=== PATIENT | female | born 2000 | race Caucasian/White ===

== ENCOUNTER 2019-10-04 02:01 | Inpatient (IN) | payer BC ==
[~2019-10-04] VITALS: Ht 172.7 cm; Wt 43.3 kg
[2019-10-04 02:06] VITALS: BP 102/80
[2019-10-04 02:59] LABS: BILIRUBIN NEGATIVE (NEGATIVE); BLOOD 2+ (NEGATIVE); CLARITY SL CLOUDY (CLEAR); COLOR YELLOW (YELLOW); GLUCOSE NEGATIVE (NEGATIVE); KETONE 2+ (NEGATIVE); LEUKO ESTERASE NEGATIVE (NEGATIVE); NITRITE NEGATIVE (NEGATIVE); PH >= 9.0 (5.0-9.0); UROBILINOGEN 0.2 E.U./dl (0.2-1.0)
[2019-10-04 03:02] LABS: BASO % 0.1 % (0.0-1.0); EOS % 0.2 % (1.0-4.0); HEMATOCRIT 38.1 % (37.0-47.0); HEMOGLOBIN 12.7 g/dl (12.0-16.0); LYMPH # 2.5 10*3/uL (1.3-4.4); LYMPH % 27.6 % (27.0-41.0); MEAN CELL VOLUME 84.7 fl (81.0-99.0); MEAN CORPUSCULAR HGB 28.2 pg (27.0-31.0); MEAN CORPUSCULAR HGB CONC 33.3 g/dl (33.0-37.0); MEAN PLATELET VOLUME 9.2 fl (9.6-12.3); MONO # 0.5 10*3/uL (0.1-1.0); MONO % 5.6 % (3.0-9.0); NEUT # 6.1 10*3/uL (2.3-7.9); NEUT % 66.3 % (47.0-73.0); PLATELET COUNT AUTOMATED 362 10*3/uL (130-400); RED CELL DISTRI WIDTH 13.5 % (0-14.5); WHITE BLOOD COUNT 9.1 10*3/uL (4.8-10.8)
[2019-10-04 03:09] LABS: BACTERIA TRACE; MUCOUS TRACE
[2019-10-04 03:16] LABS: ALBUMIN 4.3 gm/dl (3.1-4.5); ALKALINE PHOSPHATASE 78 U/L (45-117); BUN 10 mg/dl (7-24); CHLORIDE 107 mmol/L (98-107); CREATININE 0.73 mg/dL (0.55-1.02); LIPASE 147 U/L (73-393); POTASSIUM 3.1 mmol/L (3.5-5.1); SGOT/AST 11 IU/L (3-35); SGPT/ALT 18 U/L (12-78); SODIUM 141 mmol/L (136-145); TOTAL PROTEIN 8.1 gm/dL (6.4-8.2)
--- NOTE | 2019-10-04 03:20 | NUR ---
DOC NOTIFIED OF CRITICAL LA
[2019-10-04 04:55] VITALS: BP 109/66
[2019-10-04] MEDS ORDERED: K-TAB20 MEQ PO (06:27)
[2019-10-04] MEDS ORDERED: ZOFRAN4 MG PO (06:27)
--- NOTE | 2019-10-04 06:40 | NUR ---
PT HAD LARGE EPISODE OF EMESIS.PER MD PT TO BE ADMITTED.NEW IV ESTABLISHED IN PT RT ARM.
[2019-10-04 06:52] LABS: BASO % 0.1 % (0.0-1.0); EOS % 0.1 % (1.0-4.0); HEMATOCRIT 35.9 % (37.0-47.0); HEMOGLOBIN 11.9 g/dl (12.0-16.0); LYMPH # 1.5 10*3/uL (1.3-4.4); MEAN CELL VOLUME 86.7 fl (81.0-99.0); MEAN CORPUSCULAR HGB 28.7 pg (27.0-31.0); MEAN CORPUSCULAR HGB CONC 33.1 g/dl (33.0-37.0); MEAN PLATELET VOLUME 9.8 fl (9.6-12.3); MONO # 0.3 10*3/uL (0.1-1.0); MONO % 4.2 % (3.0-9.0); NEUT % 73.5 % (47.0-73.0); PLATELET COUNT AUTOMATED 382 10*3/uL (130-400); RED BLOOD COUNT 4.14 10*6/uL (4.10-5.10); RED CELL DISTRI WIDTH 13.5 % (0-14.5); WHITE BLOOD COUNT 6.9 10*3/uL (4.8-10.8)
--- NOTE | 2019-10-04 07:44 | NUR ---
Time: 743 A 19 year old F admitted to under services of KALE VILLEGAS DO. Pt. arrived via stretcher from ER. Chief complaint: NAUSEA/VOMITING. HE HERNANDEZ
[2019-10-04 07:48] LABS: BUN 9 mg/dl (7-24); CHLORIDE 114 mmol/L (98-107); CREATININE 0.58 mg/dL (0.55-1.02); POTASSIUM 3.6 mmol/L (3.5-5.1); SODIUM 144 mmol/L (136-145)
[2019-10-04 08:00] VITALS: BP 106/59
--- NOTE | 2019-10-04 08:38 | NUR ---
RESIDENT IN TO SEE PATIENT. PT DECLINED LOVENOX, UNDERSTANDS MEDIATIONS AND RISKS.
[2019-10-04 12:00] VITALS: BP 119/78
--- NOTE | 2019-10-04 13:55 | NUR ---
Discharge instructions reviewed with patient/family. Patient receptive and verbalizes understanding. Follow-up care. Written instructions given to patient/family. iv removed, dressing applied. no questions on discharge at this time HE HERNANDEZ
--- NOTE | 2019-10-04 14:10 | NUR ---
DECLINED WHEELCHAIR FOR DISCHARGE, MOTHER WITH PATIENT. DISCHARGE HOME
== END 2019-10-04 15:02 | disposition home or self-care (01) | DRG 392 ==
LOC: ED 02:01 → EDHOLD 06:44 → 4E 06:59
PROVIDERS: Emergency Medicine Emergency Medical Services; ADMIT Internal Medicine
DX: A08.4 Viral intestinal infection, unspecified (principal); E87.2 Acidosis; E87.6 Hypokalemia; R73.9 Hyperglycemia, unspecified; R00.0 Tachycardia, unspecified

== ENCOUNTER → 2020-05-05 | Outpatient (CLI) | payer BC ==
[~2020-05-05] MED LIST: K-TAB20 MEQ PO; ZOFRAN4 MG PO
== END | disposition home or self-care (01) ==
LOC: COVID19 02:59
DX: R50.9 Fever, unspecified (principal); Z20.828 Contact with and (suspected) exposure to other viral communicable diseases

== ENCOUNTER → 2021-09-13 | Outpatient (CLI) | payer BC | END | disposition home or self-care (01) | LOC: COVID19 15:19 | PROVIDERS: ATTEND Internal Medicine | DX: U07.1 COVID-19 (principal) ==

== ENCOUNTER 2022-11-28 19:02 | Emergency (ER) | payer OTHER, BC ==
[~2022-11-28] VITALS: Ht 172.7 cm; Wt 49.9 kg
[2022-11-28] MEDS ORDERED: METHOCARBAMOL500 M1 PO (20:45)
[2022-11-28] MEDS ORDERED: Motrin,Rufen800 MG PO (20:45)
== END 2022-11-28 23:06 | disposition home or self-care (01) ==
LOC: ED 19:02
DX: S16.1XXA Strain of muscle, fascia and tendon at neck level, initial encounter (principal); V89.2XXA Person injured in unspecified motor-vehicle accident, traffic, initial encounter; Y93.89 Activity, other specified; Y92.89 Other specified places as the place of occurrence of the external cause; Y99.8 Other external cause status

== ENCOUNTER → 2023-09-11 | Outpatient (CLI) | payer BC ==
[~2023-09-11] MED LIST changes: +METHOCARBAMOL500 M1 PO; +Motrin,Rufen800 MG PO
[2023-09-11 11:51] LABS: BILIRUBIN Negative (Negative); BLOOD Negative (Negative); CLARITY Clear (Clear); COLOR Yellow (Yellow); GLUCOSE Negative (Negative); KETONE 1+ (Negative); LEUKO ESTERASE 1+ (Negative); NITRITE Negative (Negative); PH 5.5 (4.5-8.0); SPECIFIC GRAVITY >= 1.030 (1.001-1.030); UROBILINOGEN 0.2 E.U./dl (0.0-1.0)
[2023-09-11 11:54] LABS: BASO % 0.3 % (0.0-1.0); EOS % 0.2 % (1.0-4.0); HEMATOCRIT 41.6 % (37.0-47.0); LYMPH # 1.6 10*3/uL (1.3-4.4); LYMPH % 14.4 % (27.0-41.0); MEAN CELL VOLUME 88.7 fl (81.0-99.0); MEAN CORPUSCULAR HGB 28.8 pg (27.0-31.0); MEAN CORPUSCULAR HGB CONC 32.5 g/dl (33.0-37.0); MEAN PLATELET VOLUME 8.7 fl (9.6-12.3); MONO # 0.5 10*3/uL (0.1-1.0); MONO % 4.2 % (3.0-9.0); NEUT # 9.1 10*3/uL (2.3-7.9); NEUT % 80.5 % (47.0-73.0); PLATELET COUNT AUTOMATED 353 10*3/uL (130-400); RED BLOOD COUNT 4.69 10*6/uL (4.10-5.10); RETICULOCYTE % 1.14 % (0.50-2.50); WHITE BLOOD COUNT 11.3 10*3/uL (4.8-10.8)
[2023-09-11 12:03] LABS: BACTERIA TRACE; MUCOUS 3+
[2023-09-11 12:17] LABS: ALKALINE PHOSPHATASE 61 U/L (46-116); BUN 7 mg/dl (9-23); CHLORIDE 106 mmol/L (98-107); CHOLESTEROL 171 mg/dL (<200); GAMMA GLUTAMYL TRANSPEPTIDASE 11 U/L (0-73); LDL CHOLESTEROL 83 mg/dL (9-159); POTASSIUM 3.6 mmol/L (3.4-5.1); SGPT/ALT 11 U/L (5-49); T3 UPTAKE 26.6 % (22.4-36.7); THYROXINE (T4) TOTAL 10.6 ug/dl (4.5-10.9); TRIGLYCERIDES 56 mg/dl (<150); URIC ACID 3.3 mg/dL (3.1-7.8); VITAMIN D, 25-HYDROXY 39.2 ng/mL (30-100)
[2023-09-12 14:08] LABS: ANTI-DSDNA ANTIBODIES 1 IU/mL (0-9)
== END | disposition home or self-care (01) ==
LOC: LAB 11:28
PROVIDERS: ATTEND Family Medicine
DX: E78.5 Hyperlipidemia, unspecified (principal); E55.9 Vitamin D deficiency, unspecified; R79.89 Other specified abnormal findings of blood chemistry; R53.83 Other fatigue; R74.8 Abnormal levels of other serum enzymes